=== PATIENT | female | born 1990 | race Caucasian/White ===

== ENCOUNTER 2018-04-11 10:50 | Day surgery (SDC) | payer MEDICAID ==
[~2018-04-11] VITALS: Ht 171.4 cm; Wt 100.5 kg
[~2018-04-11 10:50] MED LIST: SODIUM CHLORIDE 0.9% 1,000 ML IV ONE; VITA400T9 PO
[2018-04-11] MEDS ORDERED: SODIUM CHLORIDE 0.9% 1,000 ML IV ONE (11:00)
[2018-04-11] MEDS ORDERED: MIDAZOLAM HCL 2 MG/2 ML VIAL IVP ONE (12:00)
[2018-04-11] MEDS ORDERED: KETAMINE HCL 50 MG/ML 10 ML VIAL IVP ONE (12:00)
== END 2018-04-11 13:30 | disposition home or self-care (01) ==
LOC: SURGERY 10:50
PROVIDERS: ATTEND Internal Medicine Gastroenterology
DX: K64.8 Other hemorrhoids (principal); F12.90 Cannabis use, unspecified, uncomplicated; Z86.69 Personal history of other diseases of the nervous system and sense organs; Z90.89 Acquired absence of other organs; Z72.89 Other problems related to lifestyle; Z79.899 Other long term (current) drug therapy
CPT/HCPCS: 45378; 84703; J2250; J3490; J7030